=== PATIENT | male | born 1960 | race Caucasian/White ===

== ENCOUNTER 2018-12-16 20:26 | Inpatient (IN) | payer MEDICAID ==
[~2018-12-16] VITALS: Ht 177.8 cm; Wt 61.7 kg
[2018-12-16 20:26] VITALS: BP_SYST 108
[2018-12-16] MEDS ORDERED: ARGI1POW13 GT (20:44)
[2018-12-16] MEDS ORDERED: BISA10SU61 RC (20:44)
--- NOTE | 2018-12-16 20:44 | NUR ---
Placed in room 01 . Placed on apartment leasing specialist, blood pressure machine and pulse oximeter. To gown for exam. Side rails up. Report given to Amy HUNT.
--- NOTE | 2018-12-16 20:45 | NUR ---
Pt brought in brought in by ambulance. Pt is non-verbal. Pt is uncooperative, taking clothes and bedding off, throwing at staff and other patients. Pt brought into ED from halfway facility after patient forcibly removed his own g-tube earlier today. Site shows no acute bleeding or drainage. Pt does not appear to be in pain, is not guarding or otherwise showing signs of distress. Pt resting in bed, continually tossing clothing and bedding items off of bed. Pt VSS, will continue to monitor. Attempted to cover patient with blankets and protect privacy using privacy curtains, patient non-compliant and uncooperative.
--- NOTE | 2018-12-16 20:45 | NUR ---
ER at bedside examining patient.
[2018-12-16] MEDS ORDERED: CLON0.5T12 GT (20:46)
[2018-12-16] MEDS ORDERED: CLON1TAB12 GT (20:47)
[2018-12-16] MEDS ORDERED: LOM2.5 GT (20:48)
[2018-12-16] MEDS ORDERED: FLEETMO RC (20:49)
[2018-12-16] MEDS ORDERED: DIPH-934 GT (20:49)
[2018-12-16] MEDS ORDERED: LEVE100S GT (20:50)
[2018-12-16] MEDS ORDERED: LAM25 GT (20:51)
[2018-12-16] MEDS ORDERED: LOPE2CAP GT (20:52)
[2018-12-16] MEDS ORDERED: LANS15CA14 GT (20:52)
[2018-12-16] MEDS ORDERED: ACET325S17 GT (20:54)
[2018-12-16] MEDS ORDERED: MULT-300 GT (20:55)
[2018-12-16] MEDS ORDERED: HYDR-4274 PO (20:56)
[2018-12-16] MEDS ORDERED: ONDA4TAB5 GT (20:57)
[2018-12-16] MEDS ORDERED: REM15 GT (20:58)
[2018-12-16] MEDS ORDERED: POTA20TA83 GT (20:58)
[2018-12-16] MEDS ORDERED: ASCO500T20 GT (20:59)
[2018-12-16] MEDS ORDERED: ZINC220T4 GT (21:00)
[2018-12-16] MEDS ORDERED: ZOLP5TAB2 GT (21:01)
[2018-12-16] MEDS ORDERED: ANT30 GT (21:03)
--- NOTE | 2018-12-16 21:04 | NUR ---
Medication reconciliation completed with information provided by [facility]. Any prior medication reconciliation on file was reviewed and corrected.
[2018-12-16] MEDS ORDERED: LORazepam 2 MG/ML VIAL IM ONE (21:45)
--- NOTE | 2018-12-16 22:00 | NUR ---
of patient bedside. She states patient normally is chemically restrained, and that she advocates the use of restraints to keep from harming self or ripping out G-tube as this is the 6 or 7th time he has done so. Pt states that she thinks her is agitated due to poor care at previous faccility. She stated she could not stay much time to visit and had to go home. She would like to be contacted if we admit patient.
--- NOTE | 2018-12-16 22:10 | NUR ---
Dr. Acosta Bedside, Attempted x1 to insert new 18G G-tube to replace one that patient had forcibly pulled out. Unsuccesful. Pt actively clamping stomach muscles and jarring back and fourth preventing insertion safely. Attempt abandoned.
[2018-12-16] MEDS ORDERED: LORazepam 2 MG/ML VIAL IVP ONE (22:15)
[2018-12-16] MEDS ORDERED: KETAMINE 30 MG/3 ML SYRINGE IVP ONE (22:15)
--- NOTE | 2018-12-16 22:15 | NUR ---
# 20 gauge angiocath placed to R wrist. Use of asceptic technique. Opsite placed over site. Blood return noted. Blood for lab drawn from site. Flushed with 10 cc of normal saline. No evidence of infiltration noted. Patient needed to be stabilized using 3 person to avoid injury to patient.
--- NOTE | 2018-12-16 22:30 | NUR ---
Bedside re-attempting insertion of new 18G Gtube. Pt again was uncooperative and attempt was unsuccessful. Attempt abandoned.
--- NOTE | 2018-12-16 22:35 | NUR ---
Rectal Temperature of patient obtained. 100.4 degrees. MD Acosta notified.
[2018-12-16] MEDS ORDERED: PIPERACILLIN/TAZO 3.375 GM in NS 50 ML IV ONE (22:45)
[2018-12-16] MEDS ORDERED: NS 500 ML IV ONE (23:00)
[2018-12-16] MEDS ORDERED: PIPERACILLIN/TAZOBACTAM 3.375 GM/VIAL (ZOSYN) IV ONE (23:16)
[2018-12-16 23:35] LABS: BASOPHILS # (AUTO) 0.1 K/uL (0.0-0.2); BASOPHILS % (AUTO) 0.9 % (0.0-2.0); EOSINOPHILS # (AUTO) 0.4 K/uL (0.0-0.4); EOSINOPHILS % (AUTO) 4.2 % (0.0-4.0); HEMATOCRIT 37.3 % (36-54); HEMOGLOBIN 12.4 g/dL (14.0-18.0); LYMPHOCYTES # (AUTO) 1.3 K/uL (1.0-5.5); MEAN CORPUSCULAR HEMOGLOBIN 31 pg (27-31); MEAN CORPUSCULAR HGB CONC 33 % (32-36); MEAN CORPUSCULAR VOLUME 92 fL (79.0-98.0); MONOCYTES # (AUTO) 0.7 K/uL (0.0-1.0); MONOCYTES % (AUTO) 7.1 % (1.7-9.3); NEUTROPHILS # (AUTO) 7.4 K/uL (1.8-7.7); NEUTROPHILS % (AUTO) 74.8 % (40.0-70.0); PLATELET COUNT (AUTO) 316 K/uL (130-430); RED BLOOD CELL COUNT(AUTO) 4.07 MIL/uL (4.2-6.2); RED CELL DISTRIBUTION WIDTH 14.1 % (9.0-15.0); WHITE BLOOD COUNT (AUTO) 9.8 K/uL (4.8-10.8)
[2018-12-16 23:48] LABS: CALCIUM 9.3 mg/dL (8.4-11.0); CREATININE 1.37 mg/dL (0.55-1.30); POTASSIUM 4.2 mmol/L (3.5-5.1)
[2018-12-16 23:50] LABS: PROTHROMBIN TIME 9.9 SECS (9.5-12.5)
--- NOTE | 2018-12-16 23:53 | NUR ---
# 20 FR In and Out catheter with use of sterile technique. Immediate return of 250 ml Dark yellow, hazy urine noted. Urine sample collected and sent to lab. Pt tolerated procedure well. Patient unable to toilet self.
[2018-12-16 23:54] LABS: ALBUMIN 2.9 g/dL (3.4-4.8); TOTAL BILIRUBIN 0.3 mg/dL (0.0-1.0)
[2018-12-17] VITALS (8 sets, daily range): BP systolic 91–114
[2018-12-17 00:34] LABS: BILIRUBIN,URINE NEGATIVE (NEGATIVE); BLOOD, URINE NEGATIVE (NEGATIVE); CLARITY/URINE HAZY (CLEAR); COLOR,URINE YELLOW (YELLOW); GLUCOSE,URINE NEGATIVE (NEGATIVE); KETONES,URINE NEGATIVE (NEGATIVE); LEUKOCYTE ESTERASE ,URINE NEGATIVE (NEGATIVE); NITRITE, URINE NEGATIVE (NEGATIVE); PH,URINE 7.5 (5.0-8.0); PROTEIN URINE TRACE (NEGATIVE); UROBILINOGEN,URINE 0.2 (0.2-1.0)
[2018-12-17 00:44] LABS: BACTERIA,URINE FEW /HPF (None Seen); BARBITURATE, URINE NEGATIVE (NEG <=200); BENZODIAZEPINE, URINE NEGATIVE (NEG <=150); CANNABINOID, URINE NEGATIVE (NEG <=50); COCAINE, URINE NEGATIVE (NEG <=150); METHAMPHETAMINES SCREEN,URINE NEGATIVE (NEG <=500); OPIATE, URINE NEGATIVE (NEG <=100); PHENCYCLIDINE SCREEN,URINE NEGATIVE (NEG <=25); URINE AMPHETAMINE NEGATIVE (NEG <=500); URINE METHADONE NEGATIVE (NEG <=200); URINE OXYCODONE SCREEN NEGATIVE (NEG <=100); URINE PROPOXYPHENE SCREEN NEGATIVE (NEG <=300)
[2018-12-17 00:45] LABS: UR TRICYCLIC ANTIDEPRESSANTS NEGATIVE (NEG <=300)
--- NOTE | 2018-12-17 00:45 | NUR ---
Pt resting comfortably in bed. Pt continues with persistent Tachycardia, as noted in V/S, MD aware. pt Finished with antibiotics and fluids per MD order. Pt occupying self by ripping sheets of paper. stated that it helps patient to keep calm. Additional blanket provided for comfort.
[2018-12-17] MEDS ORDERED: ONDANSETRON HCL 4 MG/2 ML VIAL IVP PRN (01:15)
[2018-12-17] MEDS ORDERED: ACETAMINOPHEN 650 MG SUPP.RECT RC PRN (01:15)
--- NOTE | 2018-12-17 01:30 | NUR ---
Patient arrives with POLST indicating Full code. Code Status sheet placed in chart.
--- NOTE | 2018-12-17 01:43 | NUR ---
Patient will be admitted to care of Dr. Barron. Admitted to Telemetry unit. Will go to room 132 B. Belongings list completed. Summary report printed. Report will be given at bedside.
--- NOTE | 2018-12-17 01:52 | NUR ---
Transfer to Telemetry via ACLS protocol to Bed 132B. Licensed nurse present. IV present no signs or symptoms of infiltration.
--- NOTE | 2018-12-17 02:20 | NUR ---
ADMISSION NOTE Received patient from ER via guruna, received report from RN. Patient admitted with diagnosis of GT DISORDER AND INFECTED DECUBITUS ULCER. Patient oriented to hospital routine, call light, toileting and safety-patient verbalized understanding.
--- NOTE | 2018-12-17 02:54 | NUR ---
CONSULTATION PAGED/CALLED Reason for Consultation: GT PLACEMENT Person Who was Notified: MONCHO Consulting Physician: DR. PAEZ; GUEST RELATIONS OFFICER - DR. KNOWLES Ordering Physician: DR. CAVAZOS
--- NOTE | 2018-12-17 02:55 | NUR ---
NEW ADMIT RECEIVED FROM ER VIA STRETCHER, PATIENT IS CONFUSED AND UNSAFE TO SELF, IN ROOM WITH A SITTER AT BEDSIDE. PT IS ATTEMPTING TO PULL OUT HIS IV, WHICH IS SECURED WITH TELFA ADHESIVE WRAP, PT HAS A VERY STRONG HAND INFORMATION ANALYST. WILL CONTINUE TO REDIRECT AND MONITOR FOR SAFETY W/ SITTER AT BEDSIDE.
[2018-12-17] MEDS ORDERED: FLU VACC QS2019-20 36MOS UP/PF 60 MCG/0.5 ML SYRINGE I.M. PRN (03:00)
--- NOTE | 2018-12-17 03:00 | NUR ---
ADMISSION PATIENT ASSESSMENT COMPLETED.
--- NOTE | 2018-12-17 03:13 | NUR ---
Paged Dr. Barron
--- NOTE | 2018-12-17 04:00 | NUR ---
PT IN NAD, AWAKE AND CONFUSED, CONTINUES TO PULL ON MONITOR LEADS AND ATTEMPTING TO DISLODGE IV SITE. CALL OUT TO MD X2 CALLS, FOR RESTRAINT ORDERS, AND IVF CLARIFICATION. WILL CONT TO MONITOR.
--- NOTE | 2018-12-17 05:02 | NUR ---
Second call for Dr. Beatrice Ortiz spoke to the doctor.
--- NOTE | 2018-12-17 05:10 | NUR ---
RECEIVED ORDER FROM ADMITTING MD FOR USE OF RESTRAINTS FORM PATIENT SAFETY, AND CLARIFICATION OF IVF YES ITS OKAY TO GIVE D51/2 NS PLUS 20 MEQ KCL PER ORIGINAL ORDERS, PHARMACIST VIVIANA CALLED AND MADE AWARE. PIGSKIN TRIMMER AND CALL BY RESOURCE ADMITTING RN.
--- NOTE | 2018-12-17 06:00 | NUR ---
PT W/ A STAGE IV SACRAL WOUND, PICTURES TAKEN / PLACED IN THE CHART BY RESOURCE ADMITTING RN, WOUND CLEANSED, MEPILEX NEW DRESSING APPLIED OVER SACRAL DECUB. IVF TO BE STARTED, HOWEVER IVF: D51/2 NS + 20MEQ KCL IS NOT AVAIL AT PRESENT PER NURSING WARP PREPARER. INSTRUCTED TO ENDORSE TO ONCOMING SHIFT RN. IV POLE AND IV TUBING AT BEDSIDE, SITTER MADE AWARE, WILL PASS ON TO AM RN. PT RESTING QUIETLY, NAD NOTED. VS DONE WNL. RESTRAINT RELEASED FOR 15 MIN. FOR LARGE BM X3, PT TURNED, TOLERATED WELL. SITTER AT BEDSIDE. RESTRAINT APPLIED APPROPRIATELY FOR PATIENT SAFETY.
[2018-12-17] MEDS ORDERED: KCL 20 mEq in D5/0.45NS 1000mL 1,000 ML IV ONE (06:53)
--- NOTE | 2018-12-17 07:30 | NUR ---
PT ENDORSED REPORT TO JACQUELYN HUNT. IVF IN PUMP, UNABLE TO SCAN PATIENT, DUR TO MISSING ARM BAND. ALSO CALL TO SARAN SPOUSE AT [phone] NO ANSER X2, DETAILED VOICEMAIL LEFT. JACQUELYN MADE AWARE OF IVF TO BE STARTED AND TO TRY CALLING OR TO EXPLAIN TO IF SHE SHOWS UP WITHOUT LISTENING TO HER VOICEMAIL
--- NOTE | 2018-12-17 08:03 | NUR ---
AM rounds: Eyes closed but opens eyes with verbal stimuli. Patient is calm at this time. IV fluids of D5 1/2 NS + KCl 20meq at 100 cc/hr. NPO at this time. GT stoma is open to air. Bilateral legs elevated with pillow due to footdrop. Safety precautions observed. Call light within reach.
[2018-12-17] MEDS ORDERED: CEFAZOLIN 1 GM IVPB PREMIX 50 ML IV ONE (08:15)
[2018-12-17] MEDS: PANTOPRAZOLE SODIUM 40 MG/VIAL (PROTONIX) IVP SCH (08:32)
[2018-12-17] MEDS: KCL 20 mEq in D5/0.45NS 1000mL 1,000 ML IV SCH ×4 (08:39→22:15)
[2018-12-17] MEDS: levETIRAcetam 500 MG IV PREMIX 100 ML IV SCH ×2 (08:42→22:07)
--- NOTE | 2018-12-17 12:30 | NUR ---
ROUNDS: Wound care is done. Please see flow sheet.
--- NOTE | 2018-12-17 12:33 | NUR ---
PATIENT IS NPO PATIENTS CAME IN WITH FOOD AND FEED PATIENT PATIENTS WAS EDUCATED THAT PATIENT IS NPO AND STATES ITS OK HE DOESN'T EAT AIRWAYS AND STILL GAVE PATIENT FOOD RN JACQUELYN WAS NOTICED AND MADE AWARE
--- NOTE | 2018-12-17 18:03 | NUR ---
End of shift: Needs attended. No change in assessment. Patient is calm at this time. Safety precautions in place.
--- NOTE | 2018-12-17 19:54 | NUR ---
Initial note: Report received from dayshift RN. Patient is awake, no acute distress noted. Even and unlabored breathing on room air. IV site to right AC is patent and benign, receiving IV fluids per MD order. Bilateral soft wrist restraints in place per MD order, no skin breakdown noted. arrived and is sitting at bedside, updated her with plan of care. Call light with patient. Safety, fall, and seizure precautions in place. Will continue with plan of care.
--- NOTE | 2018-12-17 20:54 | NUR ---
MD rounds: Dr Solares at bedside to assess patient. Orders received for restraints renewal and CBC/BMP in the AM. Verified by read-back, RN to input.
--- NOTE | 2018-12-17 22:43 | NUR ---
Rounds: Patient is sleeping. No acute distress. Respirations are even and unlabored on room air. IV site patent and benign. Call light with patient. Safety, fall and seizure precautions in place. Will continue to monitor.
[2018-12-18 00:16] VITALS: BP_SYST 101
--- NOTE | 2018-12-18 01:17 | NUR ---
Rounds: Patient is resting in bed, does not show any acute distress. Tolerating room air, even and unlabored respirations. IV fluids infusing per MD order, no infiltration noted. Call light is with patient. Safety, fall, seizure precautions in place. Will continue to monitor.
--- NOTE | 2018-12-18 03:21 | NUR ---
Rounds: Patient is asleep, no acute distress noted. Even and unlabored breathing on room air. IV fluids infusing as ordered, IV site is patent and benign. Call light is with patient. Safety, fall, seizure precautions in place. Will continue monitoring.
[2018-12-18] MEDS: KCL 20 mEq in D5/0.45NS 1000mL 1,000 ML IV SCH ×2 (04:02→15:06)
--- NOTE | 2018-12-18 04:15 | NUR ---
Wound care: Patient had a bowel movement with soft, brown stool. Sacral dressing became soiled. Wound care and dressing change rendered, patient tolerated well. Will continue monitoring.
--- NOTE | 2018-12-18 05:20 | NUR ---
CONSULTATION PAGED REASON FOR CONSULTATION: INFECTED DECUBITUS ULCER WAS CONSULT CALLED? YES PERSON WHO WAS NOTIFIED: TANMAY CONSULTING PHYSICIAN: NICHOLAS MARIO PERINATAL NURSE SPECIALTY: ID PERINATAL NURSE PHONE NUMBER: [phone] ORDERING PHYSICIAN: ALEXIS
--- NOTE | 2018-12-18 06:25 | NUR ---
Closing note: Patient is resting in bed, no acute distress. Tolerating room air. IV antibiotics infusing per MD order to right forearm IV site. Bilateral soft wrist restraints in place per MD order. Patient has been kept NPO for PEG placement this AM. All needs met. Safety, fall, seizure precautions maintained. Hourly rounding performed throughout shift. Will endorse care to dayshift RN.
[2018-12-18] MEDS ORDERED: CEFAZOLIN 1 GM IVPB PREMIX 50 ML IV ONE ×2 (07:00→08:00)
--- NOTE | 2018-12-18 07:30 | NUR ---
AM NOTES: BEDSIDE REPORT GIVEN BY NIGHT NURSE MARISSA. PATIENT BILATERAL SOFT WRIST RESTRAINT.PADDED SIDE RAILS ON FOR SEIZURE PRECAUTION. BED LOCKED AT LOWEST POSITION. IVF ON GOING AT RIGHT FOREARM IN PLACE. HEALED STOMA ON THE NECK.NO ACUTE DISTRESS THIS TIME.
[2018-12-18 07:58] LABS: PROTHROMBIN TIME 9.7 SECS (9.5-12.5)
[2018-12-18 08:04] VITALS: BP_SYST 117
[2018-12-18 08:17] LABS: ALBUMIN 2.7 g/dL (3.4-4.8); BASOPHILS % (AUTO) 0.6 % (0.0-2.0); BILIRUBIN,DIRECT 0.1 mg/dL (0.0-0.3); CALCIUM 9.4 mg/dL (8.4-11.0); CREATININE 1.4 mg/dL (0.55-1.30); EOSINOPHILS # (AUTO) 0.5 K/uL (0.0-0.4); EOSINOPHILS % (AUTO) 6.2 % (0.0-4.0); HEMATOCRIT 35.3 % (36-54); HEMOGLOBIN 11.8 g/dL (14.0-18.0); LYMPHOCYTES # (AUTO) 1.3 K/uL (1.0-5.5); LYMPHOCYTES % (AUTO) 17.5 % (20.5-51.5); MEAN CORPUSCULAR HEMOGLOBIN 31 pg (27-31); MEAN CORPUSCULAR HGB CONC 34 % (32-36); MEAN CORPUSCULAR VOLUME 92 fL (79.0-98.0); MONOCYTES # (AUTO) 0.4 K/uL (0.0-1.0); MONOCYTES % (AUTO) 5.4 % (1.7-9.3); NEUTROPHILS # (AUTO) 5.1 K/uL (1.8-7.7); NEUTROPHILS % (AUTO) 70.3 % (40.0-70.0); PLATELET COUNT (AUTO) 306 K/uL (130-430); POTASSIUM 4.3 mmol/L (3.5-5.1); RED BLOOD CELL COUNT(AUTO) 3.84 MIL/uL (4.2-6.2); RED CELL DISTRIBUTION WIDTH 13.7 % (9.0-15.0); TOTAL BILIRUBIN 0.3 mg/dL (0.0-1.0)
[2018-12-18] MEDS: levETIRAcetam 500 MG IV PREMIX 100 ML IV SCH ×2 (08:37→20:12)
[2018-12-18] MEDS: PANTOPRAZOLE SODIUM 40 MG/VIAL (PROTONIX) IVP SCH (08:38)
[2018-12-18 08:48] LABS: WHITE BLOOD COUNT (AUTO) 7.3 K/uL (4.8-10.8)
--- NOTE | 2018-12-18 10:30 | NUR ---
GI ROUNDS: DR GHOSH IN THE ROOM.ORDERED EGD/PEG PLACEMENT TOMORROW MORNING(12-18-18).
--- NOTE | 2018-12-18 10:35 | NUR ---
Nutrition Update Michael Scale 15 noted. Pt admitted for GT disorder and infected decubitus ulcer. Diet: NPO BMI: 19.5 kg/m2 RD to follow per nutrition care standards.
--- NOTE | 2018-12-18 10:35 | NUR ---
RN NOTES: ON SOFT BILATERAL WRIST RESTRAINT. RESTLESS EARLIER THEN WENT BACK TO SLEEP. NO DISTRESS.
--- NOTE | 2018-12-18 12:00 | NUR ---
RN NOTES: PATIENT STILL NPO ORDERED. STABLE.
[2018-12-18 12:33] VITALS: BP_SYST 114
[2018-12-18 12:34] LABS: HEPATITIS A AB, IgM Negative (Negative); HEPATITIS B CORE AB, IgM Negative (Negative); HEPATITIS B SURFACE AG Negative (Negative)
--- NOTE | 2018-12-18 14:11 | NUR ---
RN NOTES: SIGNIFICANT OTHER JUST LEFT THE ROOM. PATIENT CALM THIS TIME.
[2018-12-18 15:25] VITALS: BP_SYST 114
--- NOTE | 2018-12-18 15:33 | NUR ---
CONSULT NEUROLOGY SEIZURE DISORDER DR LEEKERWIN [phone] S/W LIGIA EXCHANGE
--- NOTE | 2018-12-18 16:20 | NUR ---
WOUND CARE: CLEANSE NS COCCYX AREA,PAT DRY,APPLIED HYDROGEL TO WOUND BED,PACK 1 INCH IODOFORM STRIPS ,SURE PREP TO JAYA WOUND AREA AND COVERED WITH SACRAL FOAM DRESSING
--- NOTE | 2018-12-18 17:49 | NUR ---
Dietitian Recommendations * Consider Jevity 1.2 at 65 ml/hr, Shukri BID, Prosource daily, Free Water Flush: 175 ml Q4h via GT if/when medically appropriate Provides: 2092 kcal/day, 107 gm protein/day, and 2309 ml free water/day Meets: 93% of lower end of estimated caloric needs and 95% of upper end of estimated protein needs LP, RD Please refer to Nutrition Assessment for details. Addendum: 12/18/18 at [address] Amended: Links added.
--- NOTE | 2018-12-18 18:18 | NUR ---
CLOSING NOTES: STILL NPO. BILATERAL SOFT WRIST RESTRAINT ON.CALL LIGHT WITH IN REACH. BED LOCKED AT LOWEST POSITION. PRACTICE GUIDELINES MET THROUGH OUT SHIFT. CONDITION GUARDED.
--- NOTE | 2018-12-18 19:50 | NUR ---
Initial note: Received report from dayshift RN. Patient is awake in bed, is present at bedside reading magazine with patient. Patient is alert and oriented to name only. Tolerating room air, trach stoma present and open to air. IV site to right forearm is patent and benign, receiving IV fluids per MD order. SCD's in place. Bilateral soft wrist restraints in place d/t disruption of medical care per MD order, no skin breakdown noted. Call light is with patient, patient's was instructed regarding call light use, verbalized understanding. Bed is locked in lowest position, side rails raised, bed alarm on, room is close to nurses' station. Will closely monitor and continue with plan of care.
[2018-12-18 20:26] VITALS: BP_SYST 140
--- NOTE | 2018-12-18 21:28 | NUR ---
Rounds: Patient is awake in bed, no acute distress. Tolerating room air. IV fluids infusing well per MD order, no infiltration. Call light with patient. Safety, fall precautions in place. Will continue monitoring.
--- NOTE | 2018-12-19 00:38 | NUR ---
Rounds: Patient is resting in bed, no distress noted. Tolerating room air. IV fluids infusing well. BLSW restraints in place per MD order, no skin breakdown noted. Patient voided and incontinence care was rendered. Sacral dressing clean, dry, intact. Call light with patient. Safety and fall precautions in place. Will continue monitoring.
[2018-12-19 01:01] VITALS: BP_SYST 128
[2018-12-19] MEDS: KCL 20 mEq in D5/0.45NS 1000mL 1,000 ML IV SCH ×2 (02:07→14:59)
--- NOTE | 2018-12-19 03:42 | NUR ---
Rounds: Patient is awake, pulling on his restraints, and removing his gown. No acute distress otherwise. Even and unlabored breathing on room air. IV fluids infusing well to right wrist IV site. Call light with patient. Safety and fall precautions in place. Will continue monitoring.
[2018-12-19 07:02] LABS: BASOPHILS % (AUTO) 0.6 % (0.0-2.0); EOSINOPHILS # (AUTO) 0.4 K/uL (0.0-0.4); EOSINOPHILS % (AUTO) 6.8 % (0.0-4.0); HEMOGLOBIN 11.7 g/dL (14.0-18.0); LYMPHOCYTES % (AUTO) 17.1 % (20.5-51.5); MEAN CORPUSCULAR HEMOGLOBIN 31 pg (27-31); MEAN CORPUSCULAR HGB CONC 34 % (32-36); MEAN CORPUSCULAR VOLUME 91 fL (79.0-98.0); MONOCYTES # (AUTO) 0.3 K/uL (0.0-1.0); MONOCYTES % (AUTO) 6.1 % (1.7-9.3); NEUTROPHILS # (AUTO) 3.9 K/uL (1.8-7.7); NEUTROPHILS % (AUTO) 69.4 % (40.0-70.0); PLATELET COUNT (AUTO) 289 K/uL (130-430); RED BLOOD CELL COUNT(AUTO) 3.83 MIL/uL (4.2-6.2); RED CELL DISTRIBUTION WIDTH 13.5 % (9.0-15.0); WHITE BLOOD COUNT (AUTO) 5.6 K/uL (4.8-10.8)
[2018-12-19] MEDS ORDERED: BENZOCAINE 20% 0.5mL UD SPRAY MM ONE (07:18)
[2018-12-19] MEDS: fentaNYL CITRATE/PF 100 MCG/2 ML AMP ONE ×4 (07:18→08:27)
[2018-12-19] MEDS: MIDAZOLAM HCL 5 MG/5 ML VIAL ONE ×5 (07:18→08:30)
[2018-12-19] MEDS ORDERED: ceFAZolin SODIUM 1 GM in D5W 50 ML IV ONE (07:30)
[2018-12-19 07:35] LABS: ALBUMIN 2.5 g/dL (3.4-4.8); BILIRUBIN,DIRECT 0.1 mg/dL (0.0-0.3); CREATININE 1.21 mg/dL (0.55-1.30); POTASSIUM 4.4 mmol/L (3.5-5.1)
[2018-12-19 07:48] LABS: TOTAL BILIRUBIN 0.2 mg/dL (0.0-1.0)
[2018-12-19 09:35] VITALS: BP_SYST 111
[2018-12-19] MEDS: PANTOPRAZOLE SODIUM 40 MG/VIAL (PROTONIX) IVP SCH (09:55)
[2018-12-19] MEDS: levETIRAcetam 500 MG IV PREMIX 100 ML IV SCH ×2 (09:55→22:01)
--- NOTE | 2018-12-19 10:00 | NUR ---
Note Pt left floor via bed at 0725am for GT placement. Pt returned to floor at 0935am via bed. Pt had bilateral wrist restraints on. Pt pulling at restraints. No SOB/resp distress or pain/discomfort noted at this time. Tele unit attached and intact at this time. Call light within reach. Abdominal binder applied at this time as well. Pt given hygiene care for urine/stool incontinence. No needs noted at this time. Call light within reach. IVF's attached to right forearm IV site.
[2018-12-19 12:11] VITALS: BP_SYST 102
--- NOTE | 2018-12-19 13:00 | NUR ---
Note Received call from lab at 1040am - pt positive for MRSA. Pt was moved to room 101A for contact isolation precautions. Dr Solares called to notify MD. Pt resting well, no needs noted at this time. Call light within reach.
--- NOTE | 2018-12-19 15:15 | NUR ---
Note Pt's has been at bedside for the last hour or two. Pt has been kept distracted by looking at magazines and shredding them. Pt's states this activity keeps pt calm and no pulling at lines. No needs noted at this time. Call light within reach. Abdominal binder still on and intact at this time.
[2018-12-19 16:01] VITALS: BP_SYST 124
--- NOTE | 2018-12-19 17:00 | NUR ---
WOUND EVALUATION: Wound Consult received from Dr. Solares. Thank you, Dr. Soalres, for the consult. Patient received in a Omid Bed with an IsoFlex KENY mattress with low air-loss therapy initiated, awake, alert, agitated, resisting treatment. Patient is unable to turn in bed independently, but pushes back against caregivers. Michael Score is a 14. Past Medical History: Organic Brain Syndrome, Non-Hodgkins Lymphoma post Chemotherapy, Seizures, Respiratory Failure, history of ventilator dependency, CVA, PEG tube and trach dependent, infected Decubitus Ulcer and G-Tube disorder, G-tube placement. Patient admitted for G-tube insertion after he pulled out his G-tube at his residence. Recent Labs: WBC 5.6, RBC 3.83, hemoglobin 11.7, hematocrit 35.0, BUN 15, creatinine 1.21, GFR 66, serum total protein 5.9, albumin 2.5. Microbiology: Blood culture results 2 in progress. Urine culture results negative. MRSA screen results positive. Intrinsic factors that delay wound healing: Organic Brain Syndrome, Non-Hodgkins Lymphoma, Respiratory Failure. Extrinsic factors that delay wound healing: Decreased mobility. Wound Assessment: 1. Sacral-Coccygeal area: Stage IV pressure ulcer, present on admission. Wound bed has 60% yellow slough, 40% red tissue. No odor, no drainage. Surrounding tissue has maceration and scar tissue. Undermining present from 7-11 o'clock (4.6 cm at 7 o'clock; 2.8 cm at 9 o'clock; 3.4 cm at 11 o'clock; 2.2 cm at 12 o'clock). Wound measures 3.5 cm x 5.0 cm x 1.3 cm. Recommend: Cleanse wound with normal saline. Apply Calmoseptine cream to shari-wound. Apply Venelex ointment to wound bed. Pack wound and undermined areas with 1/2 inch Iodoform packing strip. Cover with non-adhesive foam dressing(s), then transparent dressings. Perform wound care daily, and as needed for dressing soiling or dislodgement. 2. Right Sacral area: Reopened scar tissue from a wound of unknown etiology, present on admission. Wound bed has 100% red tissue. No odor, no drainage. Shari-wound intact. Surrounding tissue has maceration and scar tissue. Wound measures 2.5 cm x 1.6 cm. 3. Right Sacral area, inferior t wound 2: Reopened scar tissue from a wound of unknown etiology, present on admission. Wound bed has 100% red tissue. No odor, scant sanguineous drainage. Shari-wound intact. Surrounding tissue has maceration and scar tissue. Wound measures 1.5 cm x 1.0 cm. 4. Left Sacral area: Excoriated tissue (patient scratches himself and tries to pull dressing off). Site has 100% red tissue. No odor, scant sanguineous drainage. Surrounding tissue has maceration and scar tissue. Recommend: Cleanse wounds with normal saline. Apply Calmoseptine cream to wounds and shari-wounds. Apply Venelex ointment to any portion of wound beds not covered by Calmoseptine cream. Cover with non-adhesive foam dressing(s), then transparent dressings. Perform wound care daily, and as needed for dressing soiling or dislodgement. 5. Upper thoracic spine, inferior to neck: Area of inflammation from patient scratching himself and friction from patient sliding. Site has erythema with excoriated tissue. No odor, scant sanguineous drainage. Shari-wound intact. Recommend: Cleanse site with normal saline. Apply Calmoseptine cream to site. Perform site care qid, and as needed for soiling. Also recommend: Reposition patient side to side only every 2 hours with pillow support and off-load pressure areas with pillows for pressure re-distribution. Offload, elevate and float bilateral heels with one pillow lengthwise under each extremity at all times. Perform skin care and monitor skin integrity Q shift. Use Calmoseptine cream on buttocks and other moisture susceptible areas QID and as needed for soiling. Maintain patient on a low air-loss mattress. Recommend surgical consult for Sacral-Coccygeal wound.
--- NOTE | 2018-12-19 17:00 | NUR ---
Note Wound care done with Martin commercial installer on pt's sacral area and back of neck. Z-guard was applied to back of neck and to outer sacral wound area. Restraints were reapplied after turning pt side to side for wound care and hygiene care for incontinence. Call light within reach. Pt's left bedside around 1600.
[2018-12-19] MEDS ORDERED: MENTHOL/ZINC OXIDE 113 GM OINT. TP PRN (18:00)
--- NOTE | 2018-12-19 18:40 | NUR ---
Note Pt resting in bed with bilateral wrist restraints on at this time. Tele unit attached and intact. Pt was checked on q1' and PRN all shift for needs and care. No SOB/resp distress or pain/discomfort noted at this time. Pt's abdominal binder on all shift to secure new GT site. IV in right forearm intact and patent infusing IVF's well. Pt maintained with contact isolation precautions all shift. No needs noted at this time. Call light within reach.
--- NOTE | 2018-12-19 19:55 | NUR ---
PM SHIFT ASSESSMENT Received patient lying in bed, aox1, confused, in no distress, vital signs stable, IV line to right forearm intact and patent, IVF infusing, patient on bilateral soft wrist restraints, at bedside, plan of care discussed, verbalized understanding, patient has new gt peg placed today, abdominal binder in place, patient repositioned and turned with pillow support, incontinence care provided, seizure pads in place, fall and isolation precautions in place, will closely monitor.
[2018-12-19 20:00] VITALS: BP_SYST 117
--- NOTE | 2018-12-19 21:00 | NUR ---
MD Dr. Solares at patient's bedside, new orders to start gt feeding and labs in the am, will carry out orders.
--- NOTE | 2018-12-19 22:18 | NUR ---
RN ROUNDS Patient awake, in no distress, resting quietly in bed, bilateral wrist restraints in place, incontinence care provided, repositioned and turned with pillow support, IV medications administered. Safety and fall precautions in place.
--- NOTE | 2018-12-20 00:17 | NUR ---
RN ROUNDS Patient awake, in no distress, resting quietly in bed, vital signs stable, due IVF administered, bilateral wrist restraints in place, repositioned and turned with pillow support, seizure and safety precautions in place.
[2018-12-20] MEDS: KCL 20 mEq in D5/0.45NS 1000mL 1,000 ML IV SCH ×4 (00:27→20:43)
[2018-12-20 01:21] VITALS: BP_SYST 120
--- NOTE | 2018-12-20 02:25 | NUR ---
RN ROUNDS Patient sleeping, breathing is even and unlabored, repositioned and turned with pillow support, seizure and safety precautions in place. Will monitor.
--- NOTE | 2018-12-20 02:56 | NUR ---
GT FEEDING Patient's GTube feeding started at a rate of 30 ml/hr, no residual noted, flushed with 50 cc of H20, abdominal binder in place, aspiration precautions in place, HOB elevated, patient repositioned with pillow support.
--- NOTE | 2018-12-20 04:12 | NUR ---
RN ROUNDS Patient sleeping, breathing is even and unlabored, repositioned and turned with pillow support, seizure and safety precautions in place. Will monitor.
--- NOTE | 2018-12-20 06:04 | NUR ---
RN ROUNDS Patient awake, resting quietly in bed, breathing is even and unlabored, GT feeding continues to infuse at 30 ml/hr, IV line intact and patent, IVF ongoing, incontinence care provided, repositioned and turned, no seizure activity through out the shift, seizure pads to both side rails, fall and isolation precautions maintained, bilateral wrist restraints in place, will continue to monitor until report given to am nurse.
[2018-12-20 08:00] VITALS: BP_SYST 118
--- NOTE | 2018-12-20 08:00 | NUR ---
INITIAL NOTES- In bed, awake. watching tv. Denies any pain or discomfort. tolerating feeding at 30cc/hr. has abdominal binder. on bilateral soft wrist restraints. update plan of care. safety precaution and contact precaution observed. repositioned. bed alarm on. will monitor.
[2018-12-20] MEDS: PANTOPRAZOLE SODIUM 40 MG/VIAL (PROTONIX) IVP SCH (09:04)
[2018-12-20] MEDS: levETIRAcetam 500 MG IV PREMIX 100 ML IV SCH ×2 (09:04→20:43)
--- NOTE | 2018-12-20 09:21 | NUR ---
Seen by Dr. Bella at bedside.
[2018-12-20 10:36] LABS: BASOPHILS % (AUTO) 0.4 % (0.0-2.0); EOSINOPHILS # (AUTO) 0.2 K/uL (0.0-0.4); EOSINOPHILS % (AUTO) 2.8 % (0.0-4.0); HEMATOCRIT 37.8 % (36-54); HEMOGLOBIN 12.7 g/dL (14.0-18.0); LYMPHOCYTES # (AUTO) 1.1 K/uL (1.0-5.5); LYMPHOCYTES % (AUTO) 17.2 % (20.5-51.5); MEAN CORPUSCULAR HEMOGLOBIN 30 pg (27-31); MEAN CORPUSCULAR HGB CONC 34 % (32-36); MEAN CORPUSCULAR VOLUME 90 fL (79.0-98.0); MONOCYTES # (AUTO) 0.3 K/uL (0.0-1.0); MONOCYTES % (AUTO) 5.2 % (1.7-9.3); NEUTROPHILS # (AUTO) 4.7 K/uL (1.8-7.7); NEUTROPHILS % (AUTO) 74.4 % (40.0-70.0); PLATELET COUNT (AUTO) 315 K/uL (130-430); RED BLOOD CELL COUNT(AUTO) 4.19 MIL/uL (4.2-6.2); RED CELL DISTRIBUTION WIDTH 13.6 % (9.0-15.0); WHITE BLOOD COUNT (AUTO) 6.3 K/uL (4.8-10.8)
[2018-12-20 10:39] LABS: CALCIUM 9.1 mg/dL (8.4-11.0); CREATININE 1.25 mg/dL (0.55-1.30); POTASSIUM 4.3 mmol/L (3.5-5.1)
[2018-12-20 11:26] VITALS: BP_SYST 102
--- NOTE | 2018-12-20 11:26 | NUR ---
Resting at this time. circulation intact on both wrist. denies any pain, reposition.
--- NOTE | 2018-12-20 14:20 | NUR ---
Nutrition F/U RD reviewed pt's current EMR record including diet Hx, physician notes, nursing notes, pertinent labs/meds/procedures, care trends, and care activity. Current Diet Order: Jevity 1.5 at 30 ml/hr, Free Water Flush: 50 via GT x0 days Subjective Info: Pt seen resting in bed w/ TF infusing as per physician order. Per RN, pt has been tolerating TF well. Pt is not yet meeting optimal nutritional needs d/t current TF regimen. Bedscale wt taken: 140.7#. Estimated Energy Expenditure (kcals/day) 4453-7485 kcal/day (30-35 kcal/kg IBW for wound healing, wt gain) Estimated Protein Required (g/day) 90-113 gm/day (1.2-1.5 gm/kg IBW for wound healing, wt gain) Estimated Fluid Required (l/day) 2.3-2.7 L/day (1 ml/kcal/day for wound healing) Problem/Etiology/Signs/Symptoms Increased nutritional needs related to metabolic demands as evidenced by estimated nutritional requirements for wound healing. *ongoing Expected Outcomes/Goals - Monitor appetite and PO intakes w/ goal of pt meeting at least 75% of estimated nutritional needs, labs trending WNL, normal GI function, and skin integrity/wt maintenance Dietitian Recommendations * Recommend Jevity 1.2 at 65 ml/hr, Shukri BID, Prosource daily, Free Water Flush: 175 ml Q4h via GT if/when medically appropriate Provides: 2092 kcal/day, 107 gm protein/day, and 2309 ml free water/day Meets: 93% of lower end of estimated caloric needs and 95% of upper end of estimated protein needs Follow Up High Risk: F/U in 2-3 days
--- NOTE | 2018-12-20 14:23 | NUR ---
Dietitian Recommendations * Recommend Jevity 1.2 at 65 ml/hr, Shukri BID, Prosource daily, Free Water Flush: 175 ml Q4h via GT if/when medically appropriate Provides: 2092 kcal/day, 107 gm protein/day, and 2309 ml free water/day Meets: 93% of lower end of estimated caloric needs and 95% of upper end of estimated protein needs LP, RD Please refer to Nutrition F/U for details.
--- NOTE | 2018-12-20 14:28 | NUR ---
Awake, family at bedside talking to the patient. Update on plan of care.
[2018-12-20] MEDS ORDERED: BALSAM PERU/CASTOR OIL 60 GM OINT...G. TP ONE (15:00)
[2018-12-20 15:16] VITALS: BP_SYST 100
--- NOTE | 2018-12-20 16:31 | NUR ---
DC planning: Via phone: per dr. Solares: RN to check with ID for planning dc back to snf.
--- NOTE | 2018-12-20 18:27 | NUR ---
In bed, watching tv. tolerating feeding at 40cc/hr, goal is at 65. No acute distress noted. All needs meet. will endorse.
--- NOTE | 2018-12-20 19:30 | NUR ---
Initial Notes Received handoff report from offgoing nurse at the bedside. Patient is AAOx1, resting comfortably in bed. currently at the bedside. Patient is fidgetting with paper. Currently taking a break from bilateral wrist restraints. No SOB, no acute distress, no complaints of pain or discomfort at this time. Bed is locked, in the lowest position, 2x side rails up, bed alarm is on. Call light within reach. Encouraged patient and to call for assistance.
[2018-12-20 20:00] VITALS: BP_SYST 131
--- NOTE | 2018-12-20 20:00 | NUR ---
Patient became agitated, attempted to remove medical lines. requested restraints to be placed back on the patient, stating "it will be difficult when he becomes starts hitting later to put the restraints back on." bilateral wrist restraints reapplied onto the patient. Will continue to monitor closely.
--- NOTE | 2018-12-20 22:00 | NUR ---
Patient resting comfortably in bed, no sob, no acute distress, no signs of pain or facial grimacing. AAOx1. Breathing even and unlabored with visible chest rise and fall noted. No signs of injury from bilateral wrist restraints noted at this time. Call light is in patients left hand. Currently fidgetting with call light and wrist restraints. Will continue to monitor closely.
--- NOTE | 2018-12-21 | NUR ---
Patient is AAOx1, resting in bed, currently ripping up magazine paper provided by the . No SOB, no acute distress, no complaints of pain at this time. Bed is locked, in the lowest position, 2x side rails up, bed alarm is on. Call light within reach. encouraged patient to call for assistance.
[2018-12-21 00:46] VITALS: BP_SYST 135
--- NOTE | 2018-12-21 01:28 | NUR ---
Patient is AAOx1, resting in bed, currently ripping up magazine paper provided by the . patient stated that he would like the lights turned off. Lights turned off to promote rest per patient request. call light within reach. encouraged patient to call for assistance.
--- NOTE | 2018-12-21 04:08 | NUR ---
PATIENT AAOX1, RIPPING UP PAPER. POSITIVE AFFECT NOTED. SMILING AND WATCHING TELEVISION WHILE RIPPING PAPER. NO SOB, NO ACUTE DISTRESS, NO SIGNS OF PAIN OR FACIAL GRIMACING NOTED. BED IS LOCKED, IN THE LOWEST POSITION, 2X SIDE RAILS UP, BED ALARM IS ON. CALL LIGHT IS WITHIN REACH. ENCOURAGED PATIENT TO CALL FOR ASSISTANCE.
--- NOTE | 2018-12-21 06:52 | NUR ---
Closing Notes Patient is resting comfortably in bed, AAOx1. No SOB, no acute distress, no signs of pain or facial grimacing noted. Currently ripping up magazine paper. No SOB, no acute distress, no signs of pain or facial grimacing noted. GTUBE feeding Jevity 1.2 infusing at 65 ml/hr per MD order. 20KCL D5 1/2 NS infusing at 100 ml/hr per md order, see emar. Bilateral wrist restraints in place, no signs of trauma or injury at this time. Bed is locked, in the lowest position, 2x side rails up, bed alarm is on. Call light is within reach. Encouraged patient to call for assistance. Fall and safety precautions maintained. All needs have been met during this shift. Will endorse care to oncoming dayshift nurse.
--- NOTE | 2018-12-21 07:20 | NUR ---
INITIAL NOTES BEDSIDE SBAR REPORT RECEIVED BY PARISH VISITOR RN. PT RESTING IN BED, NO ACUTE DISTRESS NOTED, BREATHING EVEN AND UNLABORED. IVF INFUSING WELL. TUBE FEEDING INFUSING WELL. ISOLATION PRECAUTIONS IN PLACE. CALL LIGHT WITHIN REACH, BED IN LOW AND LOCKED POSITION WITH BED ALARM ON.
[2018-12-21] MEDS: PANTOPRAZOLE SODIUM 40 MG/VIAL (PROTONIX) IVP SCH (08:16)
[2018-12-21] MEDS: levETIRAcetam 500 MG IV PREMIX 100 ML IV SCH (08:16)
[2018-12-21] MEDS ORDERED: BALSAM PERU/CASTOR OIL 60 GM OINT...G. TP SCH (09:00)
[2018-12-21 09:02] VITALS: BP_SYST 102
--- NOTE | 2018-12-21 09:20 | NUR ---
RN ROUNDS PT INCONTINENT OF URINE. PT CHANGED. LINENS CHANGED. PT TOLERATED WELL.
[2018-12-21 11:19] VITALS: BP_SYST 117
--- NOTE | 2018-12-21 11:20 | NUR ---
RN ROUNDS PT AWAKE, FAMILY AT BEDSIDE. NO ACUTE DISTRESS NOTED.
--- NOTE | 2018-12-21 11:54 | NUR ---
Discharge Planning: DCP faxed patient referral to [facility] (f [phone] p [phone]) DCP to follow up. Addendum: 12/21/18 at 1400 by [employer] DP Odell Layton at [facility] (f [phone] p [phone]) accepted back to Rm 31A, DCP made CM and nurse aware, DC order needed. Addendum: 12/21/18 at 1719 by [employer] DP [facility] (f [phone] p [phone]) Rm 31A, transportation arranged by [employer] ([phone]) with [employer] [facility] 7:30pm P/U. Patient packet taken to nurse station.
[2018-12-21] MEDS: KCL 20 mEq in D5/0.45NS 1000mL 1,000 ML IV SCH (12:49)
--- NOTE | 2018-12-21 13:20 | NUR ---
RN ROUNDS FAMILY AT BEDSIDE, UPDATED SARAN (CONSERVATOR) OF PT BEING ACCEPTED TO [facility]. PT AGREEABLE WITH TRANSFER.
[2018-12-21 15:25] VITALS: BP_SYST 136
--- NOTE | 2018-12-21 15:30 | NUR ---
WOUND CARE WOUND CARE DONE, PICTURES TAKEN, PT TOLERATED WELL. NO ACUTE DISTRESS NOTED DURING OR AFTER. REFER TO [facility] FOR TREATMENT.
[2018-12-21] MEDS ORDERED: BALS60OI TP (15:39)
[2018-12-21] MEDS ORDERED: LEVE500T9 (15:58)
[2018-12-21 16:05] VITALS: BP_SYST 136
[2018-12-21] MEDS ORDERED: LEVE100S GT (16:16)
--- NOTE | 2018-12-21 17:35 | NUR ---
RN ROUNDS PT AWAKE, WATCHING TELEVISION, MAGAZINE PAGES GIVEN TO PT FOR DISTRACTION.
--- NOTE | 2018-12-21 17:41 | NUR ---
RN ROUNDS INFORMED SARAN (CONSERVATOR) OF PATIENT TO BE TRANSFERRED TO [facility] AT 7:30PM BY [facility]. PT VERBALIZED UNDERSTANDING. Addendum: 12/21/18 at 1742 by Venita Newman RN [address]
--- NOTE | 2018-12-21 17:50 | NUR ---
REPORT TO DIONISIO REPORT GIVEN TO HERMAN FROM [facility]. INFORMED HERMAN OF [facility] MAN TIME TO BE AT 7:30PM BY [facility].
--- NOTE | 2018-12-21 19:10 | NUR ---
DISCHARGE DISCHARGE PACKET AND INSTRUCTIONS GIVEN TO AMBULANCE. PT CALM, COOPERATIVE, NO ACUTE DISTRESS NOTED. ALL BELONGINGS WITH PATIENT. IV CATHETER REMOVED, CATHETER INTACT, NO BLEEDING. PT TAKEN VIA GURNEY.
== END 2018-12-21 19:10 | DRG 252 ==
LOC: SED 20:26 → STU 12-17 01:05
PROVIDERS: ADMIT Internal Medicine; ATTEND Internal Medicine
PROC: 0DJ Gastrointestinal System, Inspection (ICD-10-PCS; principal; 2018-12-16)
PROC: 0DH63UZ Insertion of Feeding Device into Stomach, Percutaneous Approach (ICD-10-PCS; 2018-12-19)
DX: K94.23 Gastrostomy malfunction (principal); Z99.11 Dependence on respirator [ventilator] status; L89.159 Pressure ulcer of sacral region, unspecified stage; E46 Unspecified protein-calorie malnutrition; R13.10 Dysphagia, unspecified; R00.0 Tachycardia, unspecified; G40.909 Epilepsy, unspecified, not intractable, without status epilepticus; Z68.1 Body mass index [BMI] 19.9 or less, adult; F29 Unspecified psychosis not due to a substance or known physiological condition; Z86.73 Personal history of transient ischemic attack (TIA), and cerebral infarction without residual deficits; Z85.72 Personal history of non-Hodgkin lymphomas; Z92.21 Personal history of antineoplastic chemotherapy
CPT/HCPCS: 36415; 43246; 71045; 76700-TC; 80048; 80053; 80074; 80076; 80307; 81000-TC; 83605; 84484; 85025; 85610-TC; 85730-TC; 87040-TC; 87081; 87086; 93005; 96365; 96372; 96375; 99285; C9113; G0378; J0690; J1953; J2060; J2250; J2543; J3010; J7040; J7060